=== PATIENT | female | born 1950 ===

== ENCOUNTER 2025-03-19 10:25 | Outpatient (CLI) | payer MEDICARE, SELFPAY ==
[2025-03-19 11:09] LABS: Hematocrit 44.1 % (37.0-47.0); Hemoglobin 14.7 g/dL (12.0-15.0); Mean Corpuscular HGB Conc 33.3 g/dl (32-36); Mean Corpuscular Hemoglobin 31.8 pg (26-34); Mean Corpuscular Volume 95.5 fl (80-100); Platelet Count Result 254 k/mm3 (150-375); Red Blood Count 4.62 M/mm3 (4.2-5.4); White Blood Count 9.3 K/mm3 (4.5-10.0)
--- OUTSIDE RECORDS SUMMARY | 2025-03-19 11:52 | XMS_ITS | Clinical Summary ---
Author Organization [facility] Davidvankita ruby Jon Address [address] [place] [address] Care Team Providers Care Candy Department Manager Name Role Phone Unavailable Primary Care Provider Unavailabl e Allergies Active Allergy Reactions Criticality Noted Date Comments Codeine Unknown 02/19/2025 Medications cholestyramine, with sugar, (QUESTRAN) 4 gram Powder in Packet ADMINISTER 1 PACKET DAILY AT BEDTIME IN 2 OZ OF LIQUID 5 Active ezetimibe (ZETIA) 10 mg tablet Take 1 Tablet by mouth daily. 5 Active rosuvastatin (CRESTOR) 10 mg tablet Take 1 Tablet by mouth daily. 5 Active adalimumab (HUMIRA) 40 mg/0.8 mL Syringe Kit Inject by subcutaneous injection. 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, Abstract 02/25/2025 External Device Data STL ABSTRACTION Provider, Abstract 02/25/2025 External Device Data STL ABSTRACTION Provider, Abstract 02/25/2025 Orders Only [facility] On[facility] Hematology - [place] [address] [place] [address] Hank Jeronimo MD 02/20/2025 Orders Only [facility] Hematology - [place] [address] [place] [address] Hank Jeronimo MD 02/19/2025 10:30 AM CDT Office Visit [facility] On[facility] and Hematology - [place] [address] [place] [address] Hank Jeronimo MD Iron overload (Primary Dx) 02/19/2025 Orders Only [facility] Oncology and Hematology - [place] [address] [place] [address] Hank Jeronimo MD from Last 3 Months Family History Medical History Relation Name Comments Prostate Cancer Father Breast Cancer Mother Breast Cancer Sister 1 No Known Problems Sister 2 Lung Cancer Sister 3 Kidney Cancer Son 1 Prostate Cancer Son 2 Relation Name Status Comments Father Mother Sister 1 Sister 2 Alive Sister 3 Alive Son 1 Alive Son 2 Alive Social History Tobacco Use Types Packs/Day Years Used Date Smoking Tobacco: Former Cigarettes 0.5 10 0 08/18/1983 - 08/18/1993 Smokeless Tobacco: Never Alcohol Use Standard Drinks/Week Comments Not Currently 0 (1 standard drink = 0.6 oz pur e alcohol) Comments Unknown Sex and Gender Information Value Date Recorded Sex Assigned at Not on file Legal Sex Female 1:37 PM CDT Gender Identity Not on file Sexual Orientation Not on file Last Filed Vital Signs Vital Sign Reading Time Taken Comments Blood Pressure 188/96 02/19/2025 10:02 AM CDT Pulse 75 02/19/2025 9:58 AM CDT Temperature 36.9 C (98.5 F) 02/19/2025 9:58 AM CDT Respiratory Rate 15 02/19/2025 9:58 AM CDT Oxygen Saturation 96% 02/19/2025 9:58 AM CDT Inhaled Oxygen Concentration - - Weight 42.9 kg (94 lb 9.6 oz) 02/19/2025 9:58 AM CDT Height 149.9 cm (4' 11) 02/19/2025 9:58 AM CDT Body Mass Index 19.11 02/19/2025 9:58 AM CDT Plan of Treatment Upcoming Encounters Date Type Department Care Team (Late st Contact Info) Description 06/09/2025 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 Office Visit [facility] Oncology and Hematology - [place] [address] [place] [address] Hank Jeronimo MD [id number] [facility] [address] [place] [address] Health Maintenance Due Date Last Done Comments DTAP/TDAP/TD VACCINES (1 - Tdap) 1968 FIT-DNA Q 3 years 1994 FIT/FOBT Q 1 year 1994 Flex Sig/CT Colonography Q 5 years 1994 ZOSTER VACCINE (1 of 2) 1999 OSTEOPOROSIS SCREENING 2014 [place] Preventative Visit/Annual Wellness Visit 07/17/2024 04/29/2024, 04/24/2023 RSV VACCINE (60+ or ) (1 - 1-dose 75+ series) 2024 INFLUENZA VACCINE (#1) 2025 , 06/02/2022, 05/06/2019, Additional history exists COVID-19 Vaccine (4 - 2024-2 6 season) 2025 05/21/2021, 09/14/2020, 08/17/2020 COLORECTAL SCREENING 04/06/2029 04/06/2019 Colorectal Cancer Screening 04/06/2029 PNEUMOCOCCAL VACCINE 50+ YEARS Completed 06/25/2018 , 08/14/2015 Procedures Procedure Name Priority Date/Time Associated Diagnosis Comments CBC WITH AUTODIFFERENTIAL Routine 2024 3:09 PM CDT IRON, TIBC, AND PERCENT SATURATION Routine 02/19/2025 12:43 PM CDT HEREDITARY HEMOCHROMATOSIS DNA MUTATION ANALYSIS Routine 02/19/2025 12:41 PM CDT COMPREHENSIVE METABOLIC PANEL Routine 02/19/2025 12:21 PM CDT from Last 3 Months Results * CBC WITH AUTODIFFERENTIAL (02/19/2025 3:09 PM CDT) Blood us Hank Jeronimo MD HEMATOLOGY ORDERABLES Final Res ult * IRON, TIBC, AND PERCENT SATURATION (02/19/2025 12:43 PM CDT) Blood us Hank Jeronimo MD CHEMISTRY ORDERABLES Final Resu lt * HEREDITARY HEMOCHROMATOSIS DNA MUTATION ANALYSIS (02/19/2025 12:41 PM CDT) us Hank Jeronimo MD CHEMISTRY ORDERABLES COM Final Result * COMPREHENSIVE METABOLIC PANEL (02/19/2025 12:21 PM CDT) Blood us Hank Jeronimo MD CHEMISTRY ORDERABLES Final Resu lt from Last [address] [place] [address] [facility] Address: [facility] [id number] [id number]
[2025-03-19 14:00] LABS: Iron 127 ug/dL (37-170)
[2025-03-19 14:13] LABS: Percent Iron Saturation 52 % (20-50)
[2025-03-19 14:44] LABS: Ferritin 140.00 ng/mL (11.1-264)
== END 2025-03-19 10:26 | disposition home or self-care (01) ==
PROVIDERS: PCP Nurse Practitioner Family; Visit Provider Internal Medicine Hematology & Oncology
DX: E83.19 Other disorders of iron metabolism (principal)
CPT/HCPCS: 36415; 82728; 83540; 83550; 85027